=== PATIENT | female | born 1940 | race Caucasian/White ===

== ENCOUNTER → 2016-07-15 | Outpatient (CLI) | payer MEDICARE, OTHER ==
[~2016-07-15] MED LIST: ASPIRIN LO-DOSE81 MG PO; CELEXA10 MG; CORTEF10 MG PO; COZAAR50 MG PO; LEVOTHROID (S100 MCG PO; NORVASC5 MG PO; PLAVIX75 MG PO; PRAVACHOL40 MG PO; TOPROL XL100 MG PO; TYLENOL325 MG PO; [UNRECOGNIZED DRUG - OTHER]
== END | disposition disaster alternative care site (69) ==
LOC: GLAB 11:03 → GRAD 13:00
PROVIDERS: Obstetrics & Gynecology
DX: C56.9 Malignant neoplasm of unspecified ovary (principal); Z53.8 Procedure and treatment not carried out for other reasons

== ENCOUNTER → 2016-07-23 | Outpatient (CLI) | payer MEDICARE, OTHER | END | disposition disaster alternative care site (69) | LOC: GRAD 11:43 | DX: C56.9 Malignant neoplasm of unspecified ovary (principal); K44.9 Diaphragmatic hernia without obstruction or gangrene; J43.9 Emphysema, unspecified; E27.8 Other specified disorders of adrenal gland; N83.202 Unspecified ovarian cyst, left side; Q61.02 Congenital multiple renal cysts | CPT/HCPCS: Q9967 ==

== ENCOUNTER → 2016-09-07 | Outpatient (CLI) | payer MEDICARE, OTHER | END | disposition disaster alternative care site (69) | LOC: GRAD 07:45 | DX: C56.9 Malignant neoplasm of unspecified ovary (principal); D70.1 Agranulocytosis secondary to cancer chemotherapy; N83.202 Unspecified ovarian cyst, left side; N83.201 Unspecified ovarian cyst, right side; K66.8 Other specified disorders of peritoneum | CPT/HCPCS: Q9967 ==

== ENCOUNTER → 2016-11-25 | Outpatient (CLI) | payer MEDICARE, OTHER | LOC: GBCOE 09:21 | DX: Z12.31 Encounter for screening mammogram for malignant neoplasm of breast (principal) | CPT/HCPCS: G0202 ==